=== PATIENT | male | born 1985 | race Caucasian/White ===

== ENCOUNTER 2019-09-24 03:06 | Emergency (ER) | payer OTHER ==
[~2019-09-24] VITALS: Ht 190.5 cm; Wt 109.0 kg
[2019-09-24 03:14] VITALS: Ht 190.5 cm; Wt 109.0 kg
[2019-09-24 04:53] VITALS: BP 133/82
== END 2019-09-24 04:53 | disposition home or self-care (01) ==
LOC: ED 03:06
DX: L03.114 Cellulitis of left upper limb (principal); S39.81XA Other specified injuries of abdomen, initial encounter; V29.3XXA Motorcycle rider (driver) (passenger) injured in unspecified nontraffic accident, initial encounter; Y93.I9 Activity, other involving external motion; Y92.413 State road as the place of occurrence of the external cause; Y99.8 Other external cause status

== ENCOUNTER 2020-07-11 13:46 | Emergency (ER) | payer OTHER ==
[~2020-07-11] VITALS: Ht 190.5 cm; Wt 115.7 kg
[2020-07-11 14:03] VITALS: BP 141/86; Ht 190.5 cm; Wt 115.7 kg
== END 2020-07-11 16:11 | disposition left against medical advice (07) ==
LOC: ED 13:46
DX: Z53.21 Procedure and treatment not carried out due to patient leaving prior to being seen by health care provider (principal)